=== PATIENT | male | born 1950 | race Caucasian/White ===

== ENCOUNTER 2021-12-25 13:08 | Observation (INO) | payer MEDICARE ==
[2021-12-25] MEDS ORDERED: Aspirin Chewable 81 MG TAB ONE (13:34)
[2021-12-25 13:41] LABS: #Eosinphils 0.1 thou/uL (0.0-0.7); #Lymphocytes 1.7 thou/uL (1.20-3.40); #Neutrophils 4.8 thou/uL (1.40-6.50); %Basophils 0.4 % (0.0-1.0); %Eosinophils 0.8 % (0.0-10.0); %Lymphocytes 22.7 % (21.0-51.0); %Monocytes 12.6 % (0.0-10.0); %Neutrophils 63.5 % (42.0-75.0); Hemoglobin 15.2 g/dL (14.0-18.0); Mean Corpuscular HGB CONC 33.7 g/dL (32.0-36.0); Mean Corpuscular Hemoglobin 33.5 pg (27.0-31.0); Mean Corpuscular Volume 99.4 fL (78.0-98.0); Platelet Count 195 thou/uL (130-400); RBC Distribution Width 10.9 % (11.5-14.5); Red Blood Cell (RBC) Count 4.53 mill/uL (4.70-6.10); White Blood Cell (WBC) Count 7.5 thou/uL (4.8-10.8)
[2021-12-25 13:53] LABS: ALT (SGPT) 42 U/L (8-55); AST (SGOT) 44 U/L (5-34); Albumin 4.5 g/dL (3.4-4.8); Alkaline Phosphatase 89 U/L (40-110); Anion Gap 14 mmol/L (10-20); BUN (Urea Nitrogen) 17 mg/dL (8.4-25.7); Bilirubin, Total 0.8 mg/dL (0.2-1.2); Calc. Creatinine Clearance 0 mL/min (70-130); Calcium 9.8 mg/dL (7.8-10.44); Carbon Dioxide 26 mmol/L (23-31); Chloride 100 mmol/L (98-107); Globulin 3.1 g/dL (2.4-3.5); Glucose 117 mg/dL (80-115); Lipase 26 U/L (8-78); Potassium 4.1 mmol/L (3.5-5.1); Protein, Total 7.6 g/dL (5.8-8.1); Sodium 136 mmol/L (136-145)
[2021-12-25 13:54] LABS: Actual Bicarbonate (HCO3v) 26 mEq/L (22-28); Analyzer IN Cardio ER; Base Excess 0.1 mEq/L (-2.0 to +3.0); Calcium, Ionized (venous) 1.18 mmol/L (1.16-1.32); Chloride (VBG) 100 mmol/L (98-106); Hemoglobin (Hb) 15.7 g/dL (12.6-17.4); Potassium (VBG) 3.93 mmol/L (3.70-5.30); Sodium 136.7 mmol/L (133-146); pH (venous) 7.37 (7.32-7.43)
[2021-12-25] MEDS ORDERED: Morphine 4 MG/ML VIAL ONE (14:21)
[2021-12-25] MEDS ORDERED: Lorazepam 2 MG/ML VIAL IM PRN (16:37)
[2021-12-25 16:51] LABS: Hemoglobin A1c 5.7 % (4.0-6.0)
[2021-12-25 16:53] LABS: Cardiac Risk 2.2 (Less than 4.5); Cholesterol 166 mg/dl (< 200 Desired); HDL Cholesterol 75 mg/dL (>60 Neg Risk); LDL Cholesterol, Calculated 78 mg/dL; Magnesium 1.5 mg/dL (1.6-2.6); Phosphorus 3.6 mg/dL (2.3-4.7); Triglycerides 67 mg/dL (Less than 150)
[2021-12-25 16:58] LABS: Troponin I Less than 0.010 ng/mL (< 0.028)
[2021-12-25] MEDS ORDERED: Magnesium 2 GM/50 ML 2 GM in Premix Bag 1 BAG IVPB SCH (17:00)
[2021-12-25] MEDS ORDERED: Magnesium 2 GM/50 ML BAG (IN WATER) ONE (17:07)
[2021-12-25 17:58] VITALS: BMI 25.9
[2021-12-25] MEDS ORDERED: diphenhydrAMINE 25 MG CAP PO SCH (20:15)
[2021-12-26 05:16] LABS: ALT (SGPT) 31 U/L (8-55); AST (SGOT) 28 U/L (5-34); Albumin 3.9 g/dL (3.4-4.8); Alkaline Phosphatase 66 U/L (40-110); Anion Gap 13 mmol/L (10-20); BUN (Urea Nitrogen) 14 mg/dL (8.4-25.7); Bilirubin, Total 0.9 mg/dL (0.2-1.2); Calc. Creatinine Clearance 91 mL/min (70-130); Calcium 9.1 mg/dL (7.8-10.44); Carbon Dioxide 26 mmol/L (23-31); Chloride 99 mmol/L (98-107); Globulin 2.8 g/dL (2.4-3.5); Glucose 125 mg/dL (80-115); Potassium 3.6 mmol/L (3.5-5.1); Protein, Total 6.7 g/dL (5.8-8.1); Sodium 134 mmol/L (136-145)
[2021-12-26 05:17] LABS: Band 2 % (5-11); Eosinophils 4 % (0-10); Hemoglobin 13.9 g/dL (14.0-18.0); Lymphocytes 31 % (21-51); MDiff Complete? YES; Mean Corpuscular HGB CONC 33.9 g/dL (32.0-36.0); Mean Corpuscular Hemoglobin 34.4 pg (27.0-31.0); Mean Platelet Volume 7.2 fL (7.4-10.4); Monocytes 8 % (0-10); Neutrophil 53 % (42-75); Platelet Count 166 thou/uL (130-400); Platelet Morphology Comment Appears Adequate; RBC Distribution Width 10.8 % (11.5-14.5); Reactive Lymphocytes 2 % (0-10); Red Blood Cell (RBC) Count 4.05 mill/uL (4.70-6.10); White Blood Cell (WBC) Count 6.1 thou/uL (4.8-10.8)
[2021-12-26] MEDS ORDERED: Levothyroxine 150 MCG TAB PO SCH (06:00)
[2021-12-26] MEDS ORDERED: Atorvastatin Calcium 20 MG TAB PO SCH (09:00)
[2021-12-26] MEDS ORDERED: Losartan 25 MG TAB PO SCH (09:00)
[2021-12-26] MEDS ORDERED: Tamsulosin HCl 0.4 MG CAP PO SCH (09:00)
[2021-12-26] MEDS ORDERED: Enoxaparin Sodium 40 MG/0.4 ML SYRINGE SC SCH (09:00)
[2021-12-26] MEDS ORDERED: Aspirin 81 mg Enteric Coated Tablet PO SCH (09:00)
[2021-12-26] MEDS ORDERED: Clopidogrel Bisulfate 75 MG TAB PO SCH (09:00)
[2021-12-26] MEDS ORDERED: ADENOSINE 60 MG/20 ML VIAL ONE (11:32)
[2021-12-26 13:16] VITALS: BP 168/101; TEMP 98.5
[2021-12-26 13:59] LABS: SARS-CoV-2 PCR by NAA DETECTED (NotDetected)
== END 2021-12-26 15:48 | disposition home or self-care (01) ==
LOC: ERS 13:08 → ERHOLD 15:50 → 2NO 17:40
PROVIDERS: ADMIT Student in an Organized Health Care Education/Training Program; ATTEND Student in an Organized Health Care Education/Training Program
DX: U07.1 COVID-19 (principal); I25.110 Atherosclerotic heart disease of native coronary artery with unstable angina pectoris; I11.9 Hypertensive heart disease without heart failure; E78.5 Hyperlipidemia, unspecified; N40.0 Benign prostatic hyperplasia without lower urinary tract symptoms; K21.9 Gastro-esophageal reflux disease without esophagitis; N52.9 Male erectile dysfunction, unspecified; E03.9 Hypothyroidism, unspecified; K44.9 Diaphragmatic hernia without obstruction or gangrene; F10.10 Alcohol abuse, uncomplicated; I08.8 Other rheumatic multiple valve diseases; Z79.02 Long term (current) use of antithrombotics/antiplatelets; Z79.82 Long term (current) use of aspirin; Z79.899 Other long term (current) drug therapy; Z88.6 Allergy status to analgesic agent; Z95.1 Presence of aortocoronary bypass graft
CPT/HCPCS: 71045; 78452; 80053; 80061; 82805; 83036; 83690; 83735; 83880; 84100; 84484 ×2; 85025; 85379; 93005; 93017; 93306; 96374; 97139 ×4; 99285; A9500; U0003; U0005; 36415; 84443; 96372; 96375; G0378; J0153; J1650; J2270; J3475

== ENCOUNTER 2022-05-26 21:02 | Emergency (ER) | payer MEDICARE ==
[2022-05-26] MEDS ORDERED: methylPREDNISolone Sod Succ/PF 125 MG/2 ML VIAL ONE (21:20)
[2022-05-26] MEDS ORDERED: Famotidine/PF 20 mg/2ml Vial ONE (21:21)
[2022-05-26] MEDS ORDERED: Dextrose 50% Abboject 50 ML SYRINGE ONE (22:10)
== END 2022-05-26 22:25 | disposition home or self-care (01) ==
LOC: ERS 21:02
DX: T78.1XXA Other adverse food reactions, not elsewhere classified, initial encounter (principal); R06.02 Shortness of breath; R22.0 Localized swelling, mass and lump, head; I10 Essential (primary) hypertension; E78.5 Hyperlipidemia, unspecified; E03.9 Hypothyroidism, unspecified; Z79.82 Long term (current) use of aspirin; Z79.899 Other long term (current) drug therapy
CPT/HCPCS: 96374; 96375; J2930; J7620; J7999; S0028

== ENCOUNTER 2022-10-23 09:23 | Outpatient (CLI) | payer MEDICARE | END 2022-10-23 09:24 | disposition home or self-care (01) | LOC: RAD 09:23 | PROVIDERS: ATTEND Surgery | DX: K44.9 Diaphragmatic hernia without obstruction or gangrene (principal); K21.9 Gastro-esophageal reflux disease without esophagitis | CPT/HCPCS: 74220 ==

== ENCOUNTER 2022-11-03 05:55 | Day surgery (SDC) | payer MEDICARE ==
[2022-11-02 09:11] VITALS: BMI 25.1
[2022-11-03] MEDS ORDERED: Bupivacaine/Epinephrine 0.25% 30 ML VIAL ONE (06:48)
[2022-11-03] MEDS ORDERED: SUGAMMADEX SODIUM 200 MG/2 ML VIAL ONE (07:02)
[2022-11-03] MEDS ORDERED: fentaNYL PF 100 MCG/2 ML SYRINGE ONE (07:02)
[2022-11-03] MEDS ORDERED: Dexmedetomidine 200 MCG/2 ML VIAL ONE (07:02)
[2022-11-03] MEDS ORDERED: Sodium Chloride 0.9% 100 ML ONE (07:24)
[2022-11-03] MEDS ORDERED: CEFAZOLIN 2 GM VIAL ONE (07:24)
[2022-11-03] MEDS ORDERED: NEOSTIGMINE 3 MG/3 ML SYR 3 MG/3 ML SYRINGE ONE (07:41)
[2022-11-03] MEDS ORDERED: Phenylephrine 10 MG/ML VIAL ONE (07:41)
[2022-11-03] MEDS ORDERED: Dexamethasone 20 MG/5 ML VIAL ONE (07:41)
[2022-11-03] MEDS ORDERED: Ondansetron PF 4 MG/2 ML Vial ONE (07:41)
[2022-11-03] MEDS ORDERED: GLYCOPYRROLATE/PF 0.2 MG/ML VIAL ONE (07:41)
[2022-11-03] MEDS ORDERED: Succinylcholine Chloride 100 MG/5 ML SYRINGE FS ONE (07:41)
[2022-11-03] MEDS ORDERED: Rocuronium Bromide 10 MG/ML (10ML VIAL) ONE (07:41)
[2022-11-03] MEDS ORDERED: PROPOFOL 200 MG/20 ML VIAL ONE (07:41)
[2022-11-03] MEDS ORDERED: HYDROcodone/Acetaminophen 5/325 mg Tablet ONE (10:57)
== END 2022-11-03 11:33 | disposition home or self-care (01) ==
LOC: SDC 05:55
PROVIDERS: ATTEND Surgery
PROC: 0DJ64ZZ Inspection of Stomach, Percutaneous Endoscopic Approach (ICD-10-PCS; principal; 2022-11-03)
PROC: 0DJ08ZZ Inspection of Upper Intestinal Tract, Via Natural or Artificial Opening Endoscopic (ICD-10-PCS; 2022-11-03)
PROC: 0WUF0JZ Supplement Abdominal Wall with Synthetic Substitute, Open Approach (ICD-10-PCS; 2022-11-03)
DX: K44.9 Diaphragmatic hernia without obstruction or gangrene (principal); K42.9 Umbilical hernia without obstruction or gangrene; J98.59 Other diseases of mediastinum, not elsewhere classified; I11.9 Hypertensive heart disease without heart failure; E78.00 Pure hypercholesterolemia, unspecified; M19.90 Unspecified osteoarthritis, unspecified site; K21.9 Gastro-esophageal reflux disease without esophagitis; Z53.8 Procedure and treatment not carried out for other reasons; Z79.02 Long term (current) use of antithrombotics/antiplatelets; Z79.82 Long term (current) use of aspirin; Z79.890 Hormone replacement therapy; Z79.899 Other long term (current) drug therapy; Z88.6 Allergy status to analgesic agent; Z95.1 Presence of aortocoronary bypass graft
CPT/HCPCS: C1889; J3490

== ENCOUNTER 2022-11-10 05:46 | Day surgery (SDC) | payer MEDICARE ==
[2022-11-09 12:20] VITALS: BMI 25.5
[2022-11-10] MEDS ORDERED: Fentanyl 250 MCG/5 ML VIAL ONE (06:15)
[2022-11-10] MEDS ORDERED: Betamet Acet/Betamet Na Ph 30 MG/5 ML VIAL ONE (06:35)
[2022-11-10] MEDS ORDERED: Bacitracin Zinc Ointment 30 gm TUBE ONE (06:35)
[2022-11-10] MEDS ORDERED: Neomycin-Polymyxin 1 ML AMP ONE (06:35)
[2022-11-10] MEDS ORDERED: Bupivacaine PF 0.5% 30 ML VIAL ONE (06:35)
[2022-11-10] MEDS ORDERED: CEFAZOLIN 2 GM VIAL ONE (06:47)
[2022-11-10] MEDS ORDERED: Sodium Chloride 0.9% 100 ML ONE (06:47)
[2022-11-10] MEDS ORDERED: PROPOFOL 200 MG/20 ML VIAL ONE (07:24)
[2022-11-10] MEDS ORDERED: Lidocaine 1% PF 5 ML VIAL ONE (07:24)
[2022-11-10] MEDS ORDERED: Ketorolac Tromethamine 30 MG/ML VIAL ONE (07:24)
[2022-11-10] MEDS ORDERED: PHENYLEPHRINE-NS 100 MCG/ML 10 ML SYRINGE ONE (07:24)
[2022-11-10] MEDS ORDERED: Dexamethasone 20 MG/5 ML VIAL ONE (07:24)
[2022-11-10] MEDS ORDERED: Ondansetron PF 4 MG/2 ML Vial ONE (07:24)
== END 2022-11-10 09:37 | disposition home or self-care (01) ==
LOC: SDC 05:46
PROVIDERS: ATTEND Orthopaedic Surgery Hand Surgery
PROC: 01N50ZZ Release Median Nerve, Open Approach (ICD-10-PCS; principal; 2022-11-10)
DX: G56.03 Carpal tunnel syndrome, bilateral upper limbs (principal); M11.239 Other chondrocalcinosis, unspecified wrist; M18.0 Bilateral primary osteoarthritis of first carpometacarpal joints; M19.041 Primary osteoarthritis, right hand; M19.042 Primary osteoarthritis, left hand; G56.22 Lesion of ulnar nerve, left upper limb; M10.9 Gout, unspecified; I11.9 Hypertensive heart disease without heart failure; E78.00 Pure hypercholesterolemia, unspecified; Z79.02 Long term (current) use of antithrombotics/antiplatelets; Z79.82 Long term (current) use of aspirin; Z79.890 Hormone replacement therapy; Z79.899 Other long term (current) drug therapy; Z88.6 Allergy status to analgesic agent; Z95.1 Presence of aortocoronary bypass graft
CPT/HCPCS: J0702; J1100; J1885; J2405; J2704; J3010; J3490; S0020